=== PATIENT | female | born 2005 | race Two or more races ===

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

== ENCOUNTER 2023-07-12 22:21 | Emergency (ER) | payer OTHER, SELFPAY ==
--- NOTE | ~2023-07-12 | XR_ITS ---
EXAMINATION: XR HUMERUS, RIGHT CLINICAL INFORMATION: Dog bite to arm. COMPARISON: None available. TECHNIQUE: AP and lateral views of the right humerus. FINDINGS: Bony alignment and mineralization are normal. There is moderate soft tissue swelling of the posterior distal right upper arm, without soft tissue gas or foreign body noted. No fracture or dislocation is seen. There is no right elbow joint effusion. XR/XR humerus RT IMPRESSION: There is moderate soft tissue swelling of the posterior distal right upper arm, without soft tissue gas, foreign body or fracture noted. EXAMINATION: XR FOREARM, LEFT CLINICAL INFORMATION: Dog bite to left forearm. COMPARISON: None available. TECHNIQUE: AP and lateral views of the left forearm were obtained. FINDINGS: Bony alignment and mineralization. There is mild generalized soft tissue swelling of the proximal forearm. No focal soft tissue gas or foreign body is seen. No fracture, dislocation or left elbow joint effusion is seen. Imaged portions of the elbow and wrist are unremarkable. IMPRESSION: There is mild soft tissue swelling of the proximal forearm, without soft tissue gas, foreign body or acute fracture noted.
--- NOTE | ~2023-07-12 | XR_ITS ---
EXAMINATION: XR HUMERUS, RIGHT CLINICAL INFORMATION: Dog bite to arm. COMPARISON: None available. TECHNIQUE: AP and lateral views of the right humerus. FINDINGS: Bony alignment and mineralization are normal. There is moderate soft tissue swelling of the posterior distal right upper arm, without soft tissue gas or foreign body noted. No fracture or dislocation is seen. There is no right elbow joint effusion. XR/XR forearm LT 2V IMPRESSION: There is moderate soft tissue swelling of the posterior distal right upper arm, without soft tissue gas, foreign body or fracture noted. EXAMINATION: XR FOREARM, LEFT CLINICAL INFORMATION: Dog bite to left forearm. COMPARISON: None available. TECHNIQUE: AP and lateral views of the left forearm were obtained. FINDINGS: Bony alignment and mineralization. There is mild generalized soft tissue swelling of the proximal forearm. No focal soft tissue gas or foreign body is seen. No fracture, dislocation or left elbow joint effusion is seen. Imaged portions of the elbow and wrist are unremarkable. IMPRESSION: There is mild soft tissue swelling of the proximal forearm, without soft tissue gas, foreign body or acute fracture noted.
[2023-07-12 22:36] VITALS: BP 106/84; PULSE 92; RESP 18; TEMP 37; O2SAT 100; BMI 18.1
[2023-07-13 03:30] VITALS: BP 101/71; PULSE 80; RESP 16; TEMP 36.7; O2SAT 100
--- NOTE | 2023-07-13 06:43 | ED_ITS ---
HPI - Animal Bite General Chief Complaint: Animal Bite Stated Complaint: dog bite both arms Time Seen by Provider: 07/13/23 06:38 Source: patient, RN notes reviewed and old records reviewed Mode of arrival: ambulatory Limitations: no limitations History of Present Illness ED Provider: CHARIS GOMEZ PA-C HPI narrative: 17 year old female presents to the ED today with mom for evaluation following dog bite sustained at 1900 yesterday. Patient states that she was walking in [place] when she was attacked by a large dog. The dog is unknown to her and is unsure of dog vaccination status. She is unsure what kind of dog it was as she was not wearing her glasses. She states that the dog latched onto both her left forearm and her right upper arm however did not thrash. She is unsure if the dog looked ill. She did not contact animal control. UTD on vaccinations including tetanus. Denies fever, chills, N/V, headache, dizziness. Related Data Previous Rx's ?Medication ?Instructions ?Recorded amoxicillin 875 mg-potassium 1 tab PO BID 7 days #13 tabs 07/13/23 clavulanate 125 mg tablet Allergies Allergy/AdvReac Type Severity Reaction Status Date / Time No Known Allergies Allergy Verified 07/12/23 22:41 Review of Systems 2 Review of Systems: Constitutional: No fever, chills, fatigue, night sweats, weight changes ENT/Mouth: No ear pain, hearing loss, nasal congestion, sinus pain, rhinorrhea, sore throat Eyes: No eye pain, swelling, redness, vision changes, discharge Cardio: No chest pain, palpitations, DEJESUS, orthopnea, peripheral edema Pulm: No SOB, cough, sputum, wheezing, dyspnea, hemoptysis GI: No nausea, vomiting, hematemesis, abdominal pain, diarrhea, constipation, hematochezia, melena : No irregular bleeding, dysuria, frequency, urgency, hesitancy, hematuria, flank pain, urinary flow changes, urinary incontinence or retention MSK: No back pain, neck pain, joint pain, myalgias Skin: No lesions, rashes, +puncture wounds Neuro: No weakness, numbness, paresthesias, LOC, dizziness, headache Psych: No anxiety/panic, depression, SI/HI, AH/VH All other systems reviewed and are negative. [facility] Past Medical History Attestation statement: The following information was validated with the patient. Source: old records reviewed and nursing notes reviewed Physical Exam ED Vital Signs: Vital Signs - 24 hr 07/12/23 22:36 07/13/23 03:30 07/13/23 08:03 Temperature 98.6 F 98.1 F 98.0 F Pulse Rate 92 80 81 Respiratory Rate 18 16 18 Blood Pressure 106/84 101/71 104/74 Pulse Oximetry 100 100 100 Oxygen Delivery Method Room Air Room Air Room Air 07/13/23 09:48 Temperature 98.0 F Pulse Rate 81 Respiratory Rate 18 Blood Pressure 104/74 Pulse Oximetry 100 Oxygen Delivery Method Room Air BMI result Body Mass Index 18.1 vital signs stable Const General: cooperative, healthy appearing, comfortable and no acute distress Orientation/consciousness: patient oriented x3 Limitations: no limitations HENMT Head: Yes normal to inspection, Yes No palpable skull fracture present, Yes normocephalic and Yes atraumatic Eyes General: appearance normal, both eyes and all related structures Conjunctivae: conjunctivae normal Sclerae: sclerae normal Pupils: Equal, round and reactive pupils present Neck Neck: Yes normal visual inspection, Yes full ROM, Yes no lymphadenopathy and Yes no meningeal signs Chest Chest palpation & inspection: normal inspection of the chest and normal palpation of entire chest wall Resp Effort & Inspection: normal respiratory effort and able to speak in complete sentences Auscultation: clear to auscultation bilaterally Cardio Rate: regular rate Rhythm: regular rhythm Skin Other: + see below Neuro General: patient oriented x3 and no meningeal signs Cranial nerves: Yes Equal, round and reactive pupils present Extrem Other: + refer to below + one puncture wound noted to posterior aspect of right upper extremity with abrasion. four puncture wounds noted to the dorsal aspect of the right forearm with abrasions. no active bleeding or discharge. ttp. no palpable deformity, warmth, fluctuance, crepitus. full ROM intact to b/l shoulders, elbows, wrists, digits. radial and ulnar pulses 2+ b/l. assistant surveyor strength intact. Course Course Course Narrative: 929-- Puncture wounds well irrigated with saline and iodine. There is no FB noted. No sutures placed. There is no active bleeding or discharge from puncture sites. X-ray of left forearm and right humerus demonstrates mild soft tissue swelling around the bite wound. No soft tissue gas, foreign body or fracture noted. Patient received 1 dose of Augmentin in the ED today. Rabies series started. She has been provided with subsequent follow-up information. Augmentin sent to pharmacy for treatment. I educated her on worrisome signs and symptoms of when to return to the ED. Patient has remained stable throughout ED visit today. Discussed worrisome signs and symptoms and when to return to the ED. All questions answered at this time. Patient is agreeable with disposition and stable for discharge. Medications Administered Discontinued Medications Generic Name Dose Route Start Last Admin Trade Name Bri PRN Reason Stop Dose Admin Amoxicillin/Clavulanate Potassium 875 mg 07/13/23 06:55 07/13/23 07:18 Amoxicillin/Potassium Clav 875 Mg Tablet PO 07/13/23 06:56 875 mg ONCE ONE Administration Rabies Immune Globulin 786 unit 07/13/23 06:58 07/13/23 07:17 Rabies Immune Globulin/Pf 900 Unit/3 Ml Vial 20 unit/kg (786 unit) 07/13/23 06:59 786 unit IM Administration ONCE ONE Rabies Vaccine Human Diploid Cell 1 ml 07/13/23 06:58 07/13/23 07:18 Rabies Vaccine, Human Diploid (Imovax) 1 Ml Vial IM 07/13/23 06:59 1 ml .ONCE ONE Administration Medical Decision Making Medical Decision Making MDM Narrative: 17 year old female presents to the ED today with mom for evaluation following dog bite sustained at 1900 yesterday. Vital signs stable. Afebrile. She is nontoxic appearing and in NAD. On exam of extremities, one puncture wound noted to posterior aspect of right upper extremity with abrasion. four puncture wounds noted to the dorsal aspect of the right forearm with abrasions. no active bleeding or discharge. ttp. no palpable deformity, warmth, fluctuance, or crepitus. full ROM intact to b/l shoulders, elbows, wrists, digits. radial and ulnar pulses 2+ b/l. assistant surveyor strength intact. Differential diagnosis includes animal bite Plan for x-ray, antibiotics, rabies vaccination. Differential Diagnosis Differential Diagnoses: The differential diagnosis associated with the presentation includes as above Admission/Observation not indicated Independent Interpretation I performed an independent interpretation of an: Plain X-Ray Interpretation: XR of left forearm without fracture, agree with radiologist's interpretation. XR of right humerus without fracture, agree with radiologist's interpretation. Radiology Impression Discussion of test interpretation with radiology: I have reviewed the radiologist's reading. Radiologist Impression: EXAMINATION: XR HUMERUS, RIGHT CLINICAL INFORMATION: Dog bite to arm. COMPARISON: None available. TECHNIQUE: AP and lateral views of the right humerus. FINDINGS: Bony alignment and mineralization are normal. There is moderate soft tissue swelling of the posterior distal right upper arm, without soft tissue gas or foreign body noted. No fracture or dislocation is seen. There is no right elbow joint effusion. XR/XR humerus RT IMPRESSION: There is moderate soft tissue swelling of the posterior distal right upper arm, without soft tissue gas, foreign body or fracture noted. EXAMINATION: XR FOREARM, LEFT CLINICAL INFORMATION: Dog bite to left forearm. COMPARISON: None available. TECHNIQUE: AP and lateral views of the left forearm were obtained. FINDINGS: Bony alignment and mineralization. There is mild generalized soft tissue swelling of the proximal forearm. No focal soft tissue gas or foreign body is seen. No fracture, dislocation or left elbow joint effusion is seen. Imaged portions of the elbow and wrist are unremarkable. IMPRESSION: There is mild soft tissue swelling of the proximal forearm, without soft tissue gas, foreign body or acute fracture noted. Independent Historian Clinical information obtained from an independent historian. History obtained from or confirmed by: Parent (mom) Prescription Management I considered prescription management with: Pain Medication and Antibiotic (Augmentin) Social Determinants Patient?s care significantly limited by Social Determinants of Health including: Other Social Determinant of Health Critical Care Time Critical Care Time Critical Care Time: Yes Total Critical Care Time: 35 Attestation: Critical care time in the amount of 35 minutes has been provided to the patient in terms of direct patient care, frequent reevaluation, review and interpretation of medical data and results, and management of potentially life- threatening conditions. This is all outside of any medical procedures. Discharge Plan Discharge Clinical Impression: Dog bite of arm Patient Disposition: Home, Self-Care Instructions: Animal Bite (ED), Rabies (ED) Additional Instructions: You were evaluated in the ED today for dog bite to both arms. The xrays of your arms are normal. Augmentin as antibiotic that has been sent to your pharmacy. You were given your 1st dose in the ED today. Take this to completion, do not skip any doses. On amoxicillin-clavulanate, softer bowel movements are to be expected. Call your provider if you move your bowels more than 4 times a day, your bowel movements are almost all liquid, or you get a rash.? Your tetanus is already up to date and was not administered today. You were given your 1st dose of rabies vaccine today and provided with follow up information. Take tyelnol and motrin at home for pain/ discomfort. Return to the ED with new or worsening symptoms. In the case of an emergency call 911. Rabies follow up with the [facility] Infusion Center: Upon discharge from the ED today, you will be contacted by the Infusion Center to schedule your follow up Rabies vaccines. You will need a total of 3 more injections. If for some reason you do not receive a call, please call the Infusion Center directly at [phone]. Follow up with your primary care provider after completion of the vaccine to have a titer drawn to ensure the vaccines effectiveness. Prescriptions: New amoxicillin-pot clavulanate 875-125 mg tablet 1 tab PO BID 7 Days Qty: 13 0RF Interventions: ED Discharge Assessment Last Done: 07/13/23 09:48 Discharge Date/Time: 07/13/23 09:48 Print Language: Moz[place]ican
[2023-07-13] MEDS: Rabies Immune Globulin/PF 900 UNIT/3 ML VIAL 786 UNIT IM (07:17)
[2023-07-13] MEDS: Rabies Vaccine, Human Diploid (Imovax) 1 ML VIAL IM (07:18)
[2023-07-13] MEDS: Amoxicillin/Potassium Clav 875 MG TABLET PO (07:18)
--- NOTE | 2023-07-13 07:33 | PC.NURSE ---
pt from home, a&ox4, respirations even and unlabored, reporting that she had been bitten by a dog last night around 9pm 07/12/23. pt reports it had been dark so she was unable to identify what breed the dog was and what color. pt noted to have bite to the back of left arm and right forearm. pt medicated per apr. vaccine information given. dog bite report sheet faxed.
[2023-07-13 08:03] VITALS: BP 104/74; PULSE 81; RESP 18; TEMP 36.7; O2SAT 100
--- NOTE | 2023-07-13 09:11 | PC.NURSE ---
this RN resumed care of pt at 0800. a&ox4. vss and up to date. pt resting comfortably w/ mother in no apparent distress. pt waiting for xrays to result. no sob/wob noted. respirations even and unlabored. plan of care ongoing. call trevino placed within reach.
[2023-07-13 09:48] VITALS: BP 104/74; PULSE 81; RESP 18; TEMP 36.7; O2SAT 100
== END 2023-07-13 09:48 | disposition home or self-care (01) ==
PROVIDERS: Emergency Provider Emergency Medicine; PCP Pediatrics
DX: S51.852A Open bite of left forearm, initial encounter (principal); S41.151A Open bite of right upper arm, initial encounter; W54.0XXA Bitten by dog, initial encounter; Y93.01 Activity, walking, marching and hiking; Y92.414 Local residential or business street as the place of occurrence of the external cause; Y99.9 Unspecified external cause status; Z23 Encounter for immunization; Z20.3 Contact with and (suspected) exposure to rabies
CPT/HCPCS: 73060; 73090; 90375; 90471; 90675; 96372; 99284